=== PATIENT | male | born 1940 | race Caucasian/White ===

== ENCOUNTER → 2016-10-18 | Outpatient (CLI) | payer MEDICARE, OTHER ==
--- NOTE | 2016-10-18 16:31 | MR ---
EXAM DATE: 10/18/16 PATIENT'S AGE: 76 PATIENT: TERESA SILVEIRA Facility: Home, [place] Site . Site : [id number] Study: MRI Knee Right [id number] 1:08:25 PM Ordering Physician: Gume Witt Final Report: HISTORY: Right knee pain. Technique: MRI right knee without contrast. Comparison: Radiographs 03/17/2014. Findings: Medial compartment: Medial meniscus: Complex tear of the posterior horn of the meniscus extending into the posterior meniscal root. Intrameniscal degenerative signal changes in the body of meniscus. Articular cartilage: Grade 2-3 cartilage loss throughout the weightbearing portion of the medial femoral condyle. Moderate size area of grade 3 cartilage loss in the medial tibial plateau. Lateral compartment: Lateral meniscus: Complex tearing of the anterior horn of the meniscus. Anterior horn and body of the meniscus are attenuated. Fraying of the inferior surface of the posterior horn of meniscus. Articular cartilage: Large area of grade 3 cartilage loss in the lateral femoral condyle. No focal lateral tibial plateau cartilage defects. Patellofemoral compartment: Grade 3 cartilage loss in the medial patellar facet and over the median ridge of the patella. Grade 3-4 trochlear cartilage loss with subchondral cysts and mild subchondral marrow edema. Ligaments: ACL: Intact. PCL: Intact. MCL: Intact. Lateral ligamentous complex: Intact. Extensor mechanism: Distal quadriceps and patellar tendons are intact. Medial and lateral patellar restraints are intact. Joint space: Small joint effusion. 1 x 1.1 x 0.6 cm joint body posterior to the medial meniscus posterior root. Bones and soft tissues: Tricompartmental osteophytes. No fracture. No marrow replacing process. Small popliteal cyst. Small amount of fluid in the superficial infrapatellar bursa with adjacent subcutaneous edema. Impression: 1. Complex medial meniscus tear. 2. Complex lateral meniscus tear. 3. 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 4. Small joint effusion. 1.1 cm joint body posterior to the medial meniscus. 5. Small popliteal cyst. 6. Superficial infrapatellar bursitis. Dictated by Govind Gomes MD @ Oct 18 2016 3:45PM (Electronic Signature) Report Signed by Proxy and Original Signed Document filed in the Medical Record. MTDD
== END ==
LOC: MW.MRI 12:00
DX: M25.561 Pain in right knee (principal); S83.281A Other tear of lateral meniscus, current injury, right knee, initial encounter; S83.241A Other tear of medial meniscus, current injury, right knee, initial encounter; M17.11 Unilateral primary osteoarthritis, right knee; M25.461 Effusion, right knee; M70.41 Prepatellar bursitis, right knee; M71.21 Synovial cyst of popliteal space [Baker], right knee
CPT/HCPCS: 73721-26-RT; 73721-RT

== ENCOUNTER → 2016-10-31 | Outpatient (CLI) | payer MEDICARE, OTHER ==
--- NOTE | 2016-10-31 16:55 | CR ---
EXAMINATION: Right knee HISTORY: Pain COMPARISON: MRI dated 10/18/2016 TECHNIQUE: 2 views FINDINGS/IMPRESSION: There is no acute osseous abnormality, dislocation, or fracture identified. Min imal joint space narrowing is noted. Bone mineralization is otherwise normal.
== END ==
LOC: MW.CHORTHO 07:58
PROVIDERS: ATTEND Orthopaedic Surgery
DX: M25.561 Pain in right knee (principal); S83.281A Other tear of lateral meniscus, current injury, right knee, initial encounter
CPT/HCPCS: 73560-26-RT; 73560-RT; 73564-LT

== ENCOUNTER → 2016-11-02 | Outpatient (CLI) | payer MEDICARE, OTHER ==
--- NOTE | 2016-11-02 12:32 | CR ---
EXAMINATION: Left knee HISTORY: Pain COMPARISON: 10/31/2016 TECHNIQUE: 2 views FINDINGS/IMPRESSION: There is no acute osseous abnormality, dislocation, or fracture. Bone mineraliz ation and joint spaces appear normal. No soft tissue swelling or joint effusion.
== END ==
LOC: MW.CHORTHO 07:46
PROVIDERS: ATTEND Orthopaedic Surgery
DX: M25.562 Pain in left knee (principal)
CPT/HCPCS: 73560-26-LT; 73560-LT

== ENCOUNTER 2018-11-21 09:12 | Day surgery (SDC) | payer MEDICARE, OTHER ==
--- NOTE | 2018-11-21 11:03 | PCM.PREANE ---
Preanesthetic Assessment - Anesthesia/Transfusion/Family Hx Anesthesia History: Prior Anesthesia Without Reaction Family History of Anesthesia Reaction: No Transfusion History: No Prior Transfusion(s) - Review of Systems General: No Symptoms Pulmonary: No Symptoms Cardiovascular: No Symptoms Gastrointestinal: No Symptoms Neurological: No Symptoms Other: Reports: None - Physical Assessment NPO Status Date: 11/20/18 O2 Sat by Pulse Oximetry: 93 Respiratory Rate: 16 Vital Signs: Last Vital Signs Temp 97.2 F 11/21/18 09:58 Pulse 67 11/21/18 09:58 Resp 16 11/21/18 09:58 BP 140/69 11/21/18 09:58 Pulse Ox 93 L 11/21/18 09:58 Height: 5 ft 7 in Weight: 77.564 kg ASA Class: 2 Mental Status: Alert & Oriented x3 Airway Class: Mallampati = 2 Dentition: Reports: Dentures ROM/Head Extension: Full Lungs: Clear to Auscultation, Normal Respiratory Effort Cardiovascular: Regular Rate, Regular Rhythm - Allergies Allergies/Adverse Reactions: Allergies Allergy/AdvReac Type Severity Reaction Status Date / Time No Known Allergies Allergy Verified 11/18/18 07:15 - Blood Blood Available: No - Anesthesia Plan Pre-Op Medication Ordered: None - Acknowledgements Anesthesia Type Planned: General Anesthesia, MAC Pt an Appropriate Candidate for the Planned Anesthesia: Yes Alternatives and Risks of Anesthesia Discussed w Pt/Guardian: Yes Pt/Guardian Understands and Agrees with Anesthesia Plan: Yes Additional Comments: PMH: bph, htn, thyroid replacement, smoker CKD3 {YANG: mac/tiva PreAnesthesia Questionnaire HEENT History: Reports: Hard of Hearing, Other (See Below) Other HEENT History: 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 No treament was needed. This occured at the same time of his possible [place] Psychiatric History: Reports: None Endocrine/Metabolic History: Reports: Hypothyroidism Hematologic History: Reports: None Immunologic History: Reports: None Oncologic (Cancer) History: Reports: None Dermatologic History: Reports: None - Past Surgical History Head Surgeries/Procedures: Reports: None Cardiovascular Surgical History: Reports: None Respiratory Surgical History: Reports: None GI Surgical History: Reports: Appendectomy, Colonoscopy, Hernia, Inguinal Male Surgical History: Reports: None Endocrine Surgical History: Reports: None Neurological Surgical History: Reports: None Musculoskeletal Surgical History: Reports: None Oncologic Surgical History: Reports: None Dermatological Surgical History: Reports: None - SUBSTANCE USE Smoking Status *Q: Former Smoker Recreational Drug Use History: No - HOME MEDS Home Medications: Home Meds Finasteride 5 mg PO DAILY 05/19/16 [History] Levothyroxine Sodium [Synthroid] 25 mcg PO DAILY 05/19/16 [History] Terazosin HCl [Terazosin] 2 mg PO BEDTIME 05/19/16 [History] Triamterene/Hydrochlorothiazid [Triamterene-HCTZ 37.5-25 MG] 1 tab PO DAILY 02/25 [History] Aspirin [Lo-Dose Aspirin EC] 81 mg PO DAILY 11/18/18 [History] Triamcinolone Acetonide [Triamcinolone Acetonide 0.1% Crm] 1 applic TOP ASDIRECTED PRN 11/18/18 [History] atorvaSTATin Calcium [Atorvastatin Calcium] 40 mg PO DAILY 11/18/18 [History]
[2018-11-21] MEDS ORDERED: Propofol 200 MG/20 ML SDV ONE (12:07)
[2018-11-21] MEDS ORDERED: Ondansetron 4 MG/2 ML SDV ONE (12:08)
[2018-11-21] MEDS ORDERED: fentaNYL 100 MCG/2 ML SDV ONE (12:08)
[2018-11-21] MEDS ORDERED: Midazolam 1 MG/ML 2 ML SDV ONE (12:08)
--- NOTE | 2018-11-21 13:30 | PCM.OPNOTE ---
- General Post-Op/Procedure Note Date of Surgery/Procedure: 11/21/18 Operative Procedure(s): diagnostic colonoscopy Findings: cecal mass x 2, ascending mass x 1, multiple ascending colon polyps, hyperplastic polyps, diverticulosis Pre Op Diagnosis: hx of colon polyps Post-Op Diagnosis: cecal mass x 2, ascending mass x 1, multiple ascending colon polyps, hyperplastic polyps, diverticulosis Anesthesia Technique: [facility] [place] Primary Surgeon: Margret Lopez Pathology: cecal mass x 2, ascending mass x 1, ascending polyp, sigmoid polyp Condition: Good
--- NOTE | 2018-11-21 13:45 | PCM.POSTAN ---
POST ANESTHESIA ASSESSMENT - MENTAL STATUS Mental Status: Alert, Oriented - RESPIRATORY Respiratory Status: Respiratory Rate WNL, Airway Patent, O2 Saturation Stable - CARDIOVASCULAR CV Status: Pulse Rate WNL, Blood Pressure Stable - GASTROINTESTINAL GI Status: No Symptoms - POST OP HYDRATION Hydration Status: Adequate & Stable
[2018-11-21 13:58] VITALS: BP 105/48
--- NOTE | 2018-11-21 16:45 | OR ---
SURGEON: GARCIA BROWN MD DATE OF PROCEDURE: 11/21/2018 PREOPERATIVE DIAGNOSIS: History of colon polyp. POSTOPERATIVE DIAGNOSES: 1. Diverticulosis. 2. Hyperplastic polyps of the rectum. 3. Cecal mass x2. 4. Ascending colon mass x1. 5. Ascending colon polyps. PROCEDURE PERFORMED: Diagnostic colonoscopy with biopsy. ANESTHESIA: MAC. INSTRUMENT USED: Olympus colonoscope. EXTENT OF EXAM: To the cecum. PREPARATION: Good. LIMITATIONS: None. INDICATIONS FOR EXAMINATION: The patient is a 78-year-old male who came to see me for repair of a right inguinal hernia. Upon reviewing his chart, I noticed that he had a previous large cecal polyp that required serial colonoscopies to remove it. He is due for a three year follow up colonoscopy. The decision was made to proceed with a colonoscopy first before attempting hernia repair. I explained the procedure, expected perioperative course, and risks including bleeding, infection, or damage to surrounding structures including perforation. The patient verbalized understanding and wishes to proceed. PROCEDURE IN DETAIL: The patient was brought into the endoscopy suite and placed in a left lateral decubitus position. A time-out was completed verifying the patient's name, age, date of , allergies, and procedure to be performed. Monitored anesthesia care was induced and continuous oxygen was provided via nasal cannula throughout the procedure. After adequate sedation was achieved, digital rectal exam was performed. This exam was within normal limits. A well lubricated colonoscope was inserted into the rectum and advanced under direct visualization to the level of the cecum. The cecum was identified by both visual and anatomic landmarks. A photograph was taken of the cecal cap; however, due to looping of the scope more proximally, I was unable to retroflex the scope within the cecum. However, I was able to get a good look at the terminal ileum. The scope was fully withdrawn while examining the color, texture, anatomy, and integrity of the mucosa from the cecum to the anal canal. The patient was found to have 2 cecal masses; one was close to the appendiceal opening, the other was just slightly above this. Biopsies were taken of each of these and labeled as cecal mass #1, which was the mass close to the appendiceal orifice, and cecal mass #2. The patient was then found to have another large polyp within the midportion of the ascending colon at 110 cm. A biopsy of this was taken and sent as ascending colon mass. There were 3-4 more smaller polyps within the ascending colon, but given that I would be referring him to a colorectal surgeon for further evaluation, I did not remove these. The patient was also found to have a small polyp in the sigmoid colon. This was removed in piecemeal fashion and sent to Pathology, labeled as sigmoid colon polyp. He had diverticulosis throughout the sigmoid colon. In the distal sigmoid and rectum, he had multiple small polyps that appeared to be hyperplastic. A photograph of this was taken. The scope was then brought into the rectum and retroflexed to allow visualization of the anal canal opening. This appeared normal and a photograph was taken. The scope was then straightened out and fully withdrawn. The cecum to anus time was 21 minutes. The patient tolerated the procedure well and was taken to PACU in stable condition. ENDOSCOPIC DIAGNOSES: 1. Diverticulosis. 2. Hyperplastic polyps of the rectum. 3. Cecal mass x2. 4. Ascending colon mass x1. 5. Ascending colon polyps. RECOMMENDATIONS: I visited with the patient in the postoperative care area and showed him pictures of my findings today. I will refer him to a colorectal surgeon for further management. WILNER CAZARES /[id number] SAEID
== END 2018-11-21 14:25 | disposition home or self-care (01) ==
LOC: MW.SDS 09:12
PROVIDERS: ATTEND Surgery
DX: Z12.11 Encounter for screening for malignant neoplasm of colon (principal); D12.0 Benign neoplasm of cecum; D12.2 Benign neoplasm of ascending colon; D12.5 Benign neoplasm of sigmoid colon; K57.30 Diverticulosis of large intestine without perforation or abscess without bleeding; K63.5 Polyp of colon; K62.1 Rectal polyp; K40.90 Unilateral inguinal hernia, without obstruction or gangrene, not specified as recurrent; I10 Essential (primary) hypertension; I25.2 Old myocardial infarction; E78.00 Pure hypercholesterolemia, unspecified; E03.9 Hypothyroidism, unspecified; M17.10 Unilateral primary osteoarthritis, unspecified knee; N40.0 Benign prostatic hyperplasia without lower urinary tract symptoms; R73.03 Prediabetes; Z86.010 Personal history of colon polyps; Z79.82 Long term (current) use of aspirin; Z79.899 Other long term (current) drug therapy
CPT/HCPCS: 45380; J2250; J2405; J2704; J3010; 88305

== ENCOUNTER 2019-02-18 08:46 | Day surgery (SDC) | payer MEDICARE, OTHER ==
[~2019-02-18 08:46] MED LIST: Lactated Ringers 1,000 ML IV SCH; Lidocaine 2% 5 ML SDV ONE; Midazolam 1 MG/ML 2 ML SDV ONE; Ondansetron 4 MG/2 ML SDV ONE; Propofol 200 MG/20 ML SDV ONE; Sodium Chloride 0.9% 10 ML SDV IV PRN; Sodium Chloride 0.9% 10 ML Syringe FLUSH PRN; Sodium Chloride 0.9% 2.5 ML Syringe FLUSH PRN; ceFAZolin 2 GM in Premix Bag 1 BAG IV ONE; fentaNYL 250 MCG/5 ML SDV ONE
--- NOTE | 2019-02-18 09:50 | PCM.PREANE ---
Preanesthetic Assessment - Anesthesia/Transfusion/Family Hx Anesthesia History: Prior Anesthesia Without Reaction Family History of Anesthesia Reaction: No Transfusion History: No Prior Transfusion(s) Intubation History: Unknown - Review of Systems General: No Symptoms Pulmonary: No Symptoms Cardiovascular: No Symptoms Gastrointestinal: No Symptoms Neurological: No Symptoms Other: Reports: None - Physical Assessment Height: 5 ft 7 in Weight: 77.111 kg ASA Class: 3 Mental Status: Alert & Oriented x3 Airway Class: Mallampati = 2 Dentition: Reports: Dentures (upper and lower) Thyro-Mental Finger Breadths: 3 Mouth Opening Finger Breadths: 3 ROM/Head Extension: Limited/Partial Lungs: Clear to Auscultation, Normal Respiratory Effort Cardiovascular: Regular Rate, Regular Rhythm - Allergies Allergies/Adverse Reactions: Allergies Allergy/AdvReac Type Severity Reaction Status Date / Time No Known Allergies Allergy Verified 02/11/19 10:27 - Blood Blood Available: No - Anesthesia Plan Pre-Op Medication Ordered: None - Acknowledgements Anesthesia Type Planned: General Anesthesia Pt an Appropriate Candidate for the Planned Anesthesia: Yes Alternatives and Risks of Anesthesia Discussed w Pt/Guardian: Yes Pt/Guardian Understands and Agrees with Anesthesia Plan: Yes PreAnesthesia Questionnaire HEENT History: Reports: Hard of Hearing, Other (See Below) Other HEENT History: 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 No treament was needed. This occured at the same time of his possible [place] event per the patient and his . Psychiatric History: Reports: None Endocrine/Metabolic History: Reports: Hypothyroidism, Other (See Below) ( prediabetes) Hematologic History: Reports: None Immunologic History: Reports: None Oncologic (Cancer) History: Reports: None Dermatologic History: Reports: None - Past Surgical History Head Surgeries/Procedures: Reports: None HEENT Surgical History: Reports: None Cardiovascular Surgical History: Reports: None Respiratory Surgical History: Reports: None GI Surgical History: Reports: Appendectomy, Colonoscopy, Hernia, Inguinal (right ) Male Surgical History: Reports: None Endocrine Surgical History: Reports: None Neurological Surgical History: Reports: None Musculoskeletal Surgical History: Reports: None Oncologic Surgical History: Reports: None Dermatological Surgical History: Reports: None - SUBSTANCE USE Smoking Status *Q: Former Smoker (quit 2-3 years ago) Recreational Drug Use History: No - HOME MEDS Home Medications: Home Meds Finasteride 5 mg PO DAILY 05/19/16 [History] Levothyroxine Sodium [Synthroid] 25 mcg PO DAILY 05/19/16 [History] Terazosin HCl [Terazosin] 2 mg PO BEDTIME 05/19/16 [History] Triamterene/Hydrochlorothiazid [Triamterene-HCTZ 37.5-25 MG] 1 tab PO DAILY 02/25 [History] Aspirin [Lo-Dose Aspirin EC] 81 mg PO DAILY 11/18/18 [History] Triamcinolone Acetonide [Triamcinolone Acetonide 0.1% Crm] 1 applic TOP ASDIRECTED PRN 11/18/18 [History] atorvaSTATin Calcium [Atorvastatin Calcium] 40 mg PO DAILY 11/18/18 [History] - CURRENT (IN HOUSE) MEDS Current Meds: Current Medications Lactated Ringer's (Ringers, Lactated) 1,000 mls @ 125 mls/hr IV ASDIRECTED BLAYNE Sodium Chloride (Saline Flush) 10 ml FLUSH ASDIRECTED PRN PRN Reason: Keep Vein Open Sodium Chloride (Saline Flush) 2.5 ml FLUSH ASDIRECTED PRN PRN Reason: Keep Vein Open Sodium Chloride (Normal Saline) 10 ml IV ASDIRECTED PRN PRN Reason: IV Use Discontinued Medications Fentanyl (Sublimaze) Confirm Administered Dose 250 mcg .ROUTE .STK-MED ONE Stop: 02/18/19 08:34 Cefazolin Sodium/Dextrose 2 gm (/ Premix) 50 mls @ 100 mls/hr IV ONETIME ONE Stop: 02/17/19 08:29 Lidocaine (Xylocaine-Mpf 2%) Confirm Administered Dose 5 ml .ROUTE .STK-MED ONE Stop: 02/18/19 08:34 Midazolam HCl (Versed 1 Mg/Ml) Confirm Administered Dose 2 mg .ROUTE .STK-MED ONE Stop: 02/18/19 08:34 Ondansetron HCl (Zofran) Confirm Administered Dose 4 mg .ROUTE .STK-MED ONE Stop: 02/18/19 08:34 Propofol (Diprivan 20 Ml) Confirm Administered Dose 200 mg .ROUTE .STK-MED ONE Stop: 02/18/19 08:34
[2019-02-18] MEDS ORDERED: Bupivacaine 0.5% 30 ML SDV ONE (09:54)
[2019-02-18] MEDS ORDERED: Naloxone 0.4 MG/ML Syringe IVPUSH PRN (10:20)
[2019-02-18] MEDS ORDERED: 50% Dextrose in Water 50 ML Syringe IVPUSH PRN (10:20)
[2019-02-18] MEDS ORDERED: fentaNYL 100 MCG/2 ML SDV IVPUSH PRN (10:20)
[2019-02-18] MEDS ORDERED: Atropine 0.1 MG/ML 10 ML Syringe IVPUSH PRN ×2 (10:20)
[2019-02-18] MEDS ORDERED: EPINEPHrine 1:10,000 1 MG/10 ML Syringe IVPUSH PRN (10:20)
[2019-02-18] MEDS ORDERED: Albuterol 0.083% 2.5 MG/3 ML Neb Soln NEB PRN (10:20)
[2019-02-18] MEDS ORDERED: Sodium Chloride 0.9% 20 ML ONE (11:43)
[2019-02-18] MEDS ORDERED: ceFAZolin 1 GM Vial ONE (11:43)
[2019-02-18] MEDS ORDERED: ePHEDrine 50 MG/ML SDV ONE (11:45)
--- NOTE | 2019-02-18 13:08 | PCM.OPNOTE ---
- General Post-Op/Procedure Note Date of Surgery/Procedure: 02/18/19 Operative Procedure(s): LEFT INGUINAL HERNIA REPAIR, EXCISION LEFT GROIN SKIN TAG Findings: left inguinal skin tag, left direct inguinal hernia Pre Op Diagnosis: left inguinal skin tag, left direct inguinal hernia Post-Op Diagnosis: left inguinal skin tag, left direct inguinal hernia Anesthesia Technique: MAC Primary Surgeon: Margret Lopez Fluid Replacement, Intraop: 1,100 EBL in mLs: 5 Condition: Good
[2019-02-18] MEDS ORDERED: Acetaminophen/oxyCODONE 325-5 MG Tab ONE (14:40)
[2019-02-18] MEDS ORDERED: Acetaminophen/oxyCODONE 325-5 MG Tab PO PRN (14:46)
[2019-02-18 15:20] VITALS: BP 116/57
--- NOTE | 2019-02-19 14:23 | OR ---
SURGEON: MARGRET LOPEZ MD DATE OF PROCEDURE: 02/18/2019 PREOPERATIVE DIAGNOSES: 1. Left inguinal hernia. 2. Left groin skin tag. POSTOPERATIVE DIAGNOSES: 1. Left direct inguinal hernia. 2. Left groin skin tag. PROCEDURE PERFORMED: Excision of left groin skin tag, left inguinal hernia repair with mesh. PRIMARY SURGEON: Margret Lopez MD. ANESTHESIA: General endotracheal anesthesia. FLUIDS: 1100 mL crystalloid. ESTIMATED BLOOD LOSS: 5 mL. FINDINGS: Left groin skin tag measuring 1 cm x 1 cm in size, left direct inguinal hernia containing fat. COMPLICATIONS: None. INDICATIONS: The patient is a 78-year-old male who has a left inguinal hernia. Just inferior to the inguinal ligament, he has a large skin tag that is along where his inguinal crease is. He would like to have the inguinal hernia repaired and have the skin tag excised as well. I explained the procedure, expected perioperative course, and risks including bleeding, infection, or damage to surrounding structures. He verbalized understanding and wishes to proceed. PROCEDURE IN DETAIL: The patient was brought into the OR and placed on the OR table in supine position. A time-out was completed verifying the patient's name, age, date of , allergies, and procedure to be performed. General endotracheal anesthesia was induced. The lower abdomen, groin, and genitalia were prepped and draped in usual standard fashion. I anesthetized the area overlying my skin incision with 0.5% Marcaine plain. A 10 blade was used to make an oblique incision 1 fingerbreadth above the inguinal ligament. This was carried down through the subcutaneous tissue using cautery. The external oblique fascia was exposed and incised sharply with a 15 blade. Using Metzenbaum scissors, I carried my incision along the length of the external oblique fibers to the external ring. I cleared away the underside of the external oblique fascia both superiorly and inferiorly. I then encircled the cord structures with a Radha drain. I immediately encountered a direct inguinal hernia. The floor of the inguinal canal was attenuated and contained fat. This was reduced back into the abdomen. A small Prolene patch was then placed into the floor of the inguinal canal and the tails of the mesh were wrapped around the internal ring. The patch was sutured medially to the pubic tubercle, inferiorly to Bang's ligament and the reflected inguinal ligament, and superiorly to the conjoined tendon using interrupted 0 Ethibond sutures. The tails of the mesh were sutured in place to allow the cord structures through without any undue tension or strangulation. I then had the patient do a Valsalva maneuver and the repair appeared intact. I irrigated the wound with normal saline. The external oblique fascia was then closed with a running 3-0 Vicryl suture. The subcutaneous fat was closed with a running 3-0 Vicryl suture along the deep margin and with interrupted 3-0 Vicryl more superficially. The skin was closed with a running 4-0 Monocryl stitch. Steri-Strips and sterile dressings were applied. I then turned my attention to the skin tag. I injected 0.5% marcaine plain under the lesion. I used a 15 blade to transect the lesion at its base. Cautery was used to achieve hemostasis. Skin the base of the lesion was so small (2-3mm) I did not suture this closed. A sterile dressing was applied. All counts were complete and correct at the end of the case. The patient was extubated and taken to the PACU in stable condition. WILNER CAZARES /[id number] SAEID
== END 2019-02-18 14:45 | disposition home or self-care (01) ==
LOC: MW.SDS 08:46
PROVIDERS: ATTEND Surgery
DX: K40.90 Unilateral inguinal hernia, without obstruction or gangrene, not specified as recurrent (principal); L91.8 Other hypertrophic disorders of the skin; I10 Essential (primary) hypertension; E78.00 Pure hypercholesterolemia, unspecified; E03.9 Hypothyroidism, unspecified; M17.12 Unilateral primary osteoarthritis, left knee; R73.03 Prediabetes; N40.0 Benign prostatic hyperplasia without lower urinary tract symptoms; M19.90 Unspecified osteoarthritis, unspecified site; Z79.899 Other long term (current) drug therapy; Z79.82 Long term (current) use of aspirin; Z87.891 Personal history of nicotine dependence
CPT/HCPCS: 49505; A9270; J0690; J2001; J2250; J2405; J2704; J3010; J3490; J7120

== ENCOUNTER 2020-08-04 15:23 | Emergency (ER) | payer MEDICARE, OTHER ==
[2020-08-04] MEDS ORDERED: Sodium Chloride 0.9% 2.5 ML Syringe FLUSH PRN (15:58)
[2020-08-04] MEDS ORDERED: Sodium Chloride 0.9% 10 ML Syringe FLUSH PRN (15:58)
--- NOTE | 2020-08-04 16:02 | PCM.SN.2 ---
- Free Text/Narrative Note: EKG Time 355pm Rate 65 NSR No BINH
[2020-08-04] MEDS ORDERED: Sodium Chloride 0.9% 1,000 ML IV ONE (16:40)
[2020-08-04 17:09] LABS: BLOOD UREA NITROGEN,BUN 25 mg/dL (7.0-18.0); CARBON DIOXIDE,CO2 25.1 mmol/L (21.0-32.0); CHLORIDE,CL 104 mmol/L (98-107); GLUCOSE RANDOM 118 mg/dL (74-106); POTASSIUM,K 3.7 mmol/L (3.5-5.1); SODIUM,NA 141 mmol/L (136-148)
--- NOTE | 2020-08-04 17:27 | EDM.PDOC ---
ED HPI GENERAL MEDICAL PROBLEM - General Chief Complaint: General Stated Complaint: [facility] RE[facility] Time Seen by Provider: 08/04/20 15:24 Source of Information: Reports: Patient History Limitations: Reports: No Limitations - History of Present Illness INITIAL COMMENTS - FREE TEXT/NARRATIVE: HISTORY AND PHYSICAL: History of present illness: Patient is a 80-year-old male presents emergency room today with a few various complaints. Patient states his main complaint is he has a headache. Patient states he has had a headache for the past 3 weeks off and on but he has had worse headaches before. Patient states that he had a routine follow-up appointment yesterday at the [facility] and told him about his headaches. Patient states that he is also been having issues with shortness of breath, and muscle cramping x 6 months-1year. Patient states he has been having issues with shortness of breath and muscle cramping for the past 6 months to 1 year and has also seen Dr. Rodarte for this and has had multiple studies done according to patient over the course of the past 1 year. Patient is unsure what he specifically had done/tested but states that the [facility] checked a D-dimer yesterday and instructed patient to come to the emergency room as this was elevated yesterday. Patient does not have paperwork from the [facility] with him today. Patient states his only complaint today is he is having a headache. Patient denies any head injury or trauma. States he has a history of hypertension, hyperlipidemia, TIA. Patient states that his shortness of breath is not new or changed today and this has been ongoing for nearly a year and he has been following with his primary care provider. Daughter states she is concerned about his shortness of breath but patient states he is not concerned. Patient denies fever, chills, chest pain, or cough. Denies neck stiff ness, change in vision, syncope, or near syncope. Denies nausea, vomiting, abdominal pain, diarrhea, constipation, or dysuria. Has not noted any blood in urine or stool. Patient has been eating and drinking appropriately. Review of systems: As per history of present illness and below otherwise all systems reviewed and negative. Past medical history: As per history of present illness and as reviewed below otherwise noncontributory. Surgical history: As per history of present illness and as reviewed below otherwise noncontrib utory. Social history: See social history for further information Family history: As per history of present illness and as reviewed below otherwise noncontributory. Physical exam: General: Patient is alert, oriented, and in no acute distress. Patient sitting comfortably on exam table. Vitals stable and reviewed by me. HEENT: Atraumatic, normocephalic, pupils equal and reactive bilaterally, ne gative for conjunctival pallor or scleral icterus, mucous membranes moist, TMs normal bilaterally, throat clear, neck supple, nontender, trachea midline. No drooling or trismus noted. No meningeal signs. No hot potato voice noted. Lungs: Clear to auscultation, breath sounds equal bilaterally, chest nontender. Patient speaking clearly without breathlessness, no wheezing or stridor, no accessory muscle use or respiratory distress. Heart: S1S2, regular rate and rhythm without overt murmur Abdomen: Soft, nondistended, nontender. Negative for masses or hepatosplenomegaly. Negative for costovertebral tenderness. Pelvis: Stable nontender. Genitourinary: Deferred. Rectal: Deferred. Skin: Intact, warm, dry. No lesions or rashes noted. Extremities: Atraumatic, negative for cords or calf pain. Neurovascular unremarkable. Neuro: Awake, alert, oriented. Cranial nerves II through XII unremarkable. Cerebellum unremarkable. Motor and sensory unremarkable throughout. Exam nonfocal. Notes: Vitals stable. Patient states his SOB today is per his baseline, however, because his daughter is concerned, states he is willing to receive an evaluation for this today. Patient is comfortable on exam, nontoxic, and in no acute distress. He is breathing comfortably without any signs of respiratory distress, wheezing, or stridor. Patient's D-dimer is not elevated today in the ED and is WNL. On reexamination, patient has remained vitally stable throughout stay in ED, he remains nontoxic. Patient declines receiving a head CT imaging for his headaches or any pain medication for headache treatment. Patient continues to express that his shortness of breath is per his baseline and unchanged today despite his daughters concerns. He requests discharge from the ED. Strict return precautions were thoroughly discussed with patient. Discussed importance for follow-up with his primary care provider. Voices understanding and is agreeable to plan of care. Denies any further questions or concerns at this time. Diagnostics: EKG, CBC, CMP, Ddimer, CXR, Trop, (Patient declines head ct) Therapeutics: None (Patient declines pain medication) Prescription: None Impression: Headache, unspecified Dyspnea, chronic Plan: 1. You can use Tylenol as directed for pain and discomfort. 2. Follow-up with a primary care provider as discussed. Return to the ED as needed as discussed. Definitive disposition and diagnosis as appropriate pending reevaluation and review of above. - Related Data Allergies Allergy/AdvReac Type Severity Reaction Status Date / Time No Known Allergies Allergy Verified 08/04/20 15:40 Home Meds: Home Meds Finasteride 5 mg PO BEDTIME 05/19/16 [History] Levothyroxine Sodium [Synthroid] 75 mcg PO ACBREAKFAST 05/19/16 [History] Terazosin HCl [Terazosin] 2 mg PO BEDTIME 05/19/16 [History] Aspirin [Lo-Dose Aspirin EC] 81 mg PO DAILY 11/18/18 [History] atorvaSTATin Calcium [Atorvastatin Calcium] 40 mg PO BEDTIME 11/18/18 [History] lisinopriL [Lisinopril] 10 mg PO DAILY 08/04/20 [History] Past Medical History HEENT History: Reports: Hard of Hearing, Other (See Below) Other HEENT History: 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 No treament was needed. This occured at the same time of his possible GA event per the patient and his . Psychiatric History: Reports: None Endocrine/Metabolic History: Reports: Hypothyroidism, Other (See Below) Hematologic History: Reports: None Immunologic History: Reports: None Oncologic (Cancer) History: Reports: None Dermatologic History: Reports: None - Past Surgical History Head Surgeries/Procedures: Reports: None HEENT Surgical History: Reports: None Cardiovascular Surgical History: Reports: None Respiratory Surgical History: Reports: None GI Surgical History: Reports: Appendectomy, Colonoscopy, Hernia, Inguinal Male Surgical History: Reports: None Endocrine Surgical History: Reports: None Neurological Surgical History: Reports: None Musculoskeletal Surgical History: Reports: None Oncologic Surgical History: Reports: None Dermatological Surgical History: Reports: None Social & Family History - Family History Family Medical History: No Pertinent Family History - Caffeine Use Caffeine Use: Reports: Coffee - Recreational Drug Use Recreational Drug Use: No ED ROS GENERAL - Review of Systems Review Of Systems: Comprehensive ROS is negative, except as noted in HPI. ED EXAM, GENERAL - Physical Exam Exam: See Below (see dictation) Course - Vital Signs Last Recorded V/S: Last Vital Signs Temp 98.0 F 08/04/20 15:40 Pulse 60 08/04/20 17:15 Resp 18 08/04/20 17:15 BP 115/56 L 08/04/20 17:15 Pulse Ox 97 08/04/20 17:15 - Orders/Labs/Meds Orders: Active Orders 24 hr Category Date Time Status Cardiac Monitoring [RC] . DIRECTED Care 08/04/20 15:58 Active EKG Documentation Completion [RC] STAT Care 08/04/20 15:58 Active UA RFX NINA AND CULT IF INDIC [URIN] Stat Lab 08/04/20 15:58 Ordered Sodium Chloride 0.9% [Saline Flush] Med 08/04/20 15:58 Active 10 ml FLUSH ASDIRECTED PRN Sodium Chloride 0.9% [Saline Flush] Med 08/04/20 15:58 Active 2.5 ml FLUSH ASDIRECTED PRN Saline Lock Insert [OM.PC] Stat Oth 08/04/20 15:58 Ordered Medication Orders Sodium Chloride (Saline Flush) 2.5 ml FLUSH ASDIRECTED PRN PRN Reason: Keep Vein Open Last Admin: 08/04/20 17:05 Dose: 2.5 ml Documented by: DANIELLE Sodium Chloride (Saline Flush) 10 ml FLUSH ASDIRECTED PRN PRN Reason: Keep Vein Open Last Admin: 08/04/20 17:04 Dose: 10 ml Documented by: DANIELLE Labs: Laboratory Tests 08/04/20 08/04/20 08/04/20 Range/Units 16:31 16:31 16:31 WBC 7.80 (4.0-11.0) K/uL RBC 4.30 L (4.50-5.90) M/uL Hgb 13.0 (13.0-17.0) g/dL Hct 39.1 (38.0-50.0) % MCV 90.9 (80.0-98.0) fL MCH 30.2 (27.0-32.0) pg MCHC 33.2 (31.0-37.0) g/dL RDW Std Deviation 46.3 (28.0-62.0) fl RDW Coeff of Manuel 14 (11.0-15.0) % Plt Count 190 (150-400) K/uL MPV 10.30 (7.40-12.00) fL Neut % (Auto) 72.3 (48.0-80.0) % Lymph % (Auto) 16.0 (16.0-40.0) % Nash % (Auto) 7.4 (0.0-15.0) % Eos % (Auto) 3.8 (0.0-7.0) % Baso % (Auto) 0.5 (0.0-1.5) % Neut # (Auto) 5.6 (1.4-5.7) K/uL Lymph # (Auto) 1.3 (0.6-2.4) K/uL Nash # (Auto) 0.6 (0.0-0.8) K/uL Eos # (Auto) 0.3 (0.0-0.7) K/uL Baso # (Auto) 0.0 (0.0-0.1) K/uL Nucleated RBC % 0.0 /100WBC Nucleated RBCs # 0 K/uL D-Dimer, Quantitative 0.44 (0.0-0.50) mg/L FEU Sodium 141 (136-148) mmol/L Potassium 3.7 (3.5-5.1) mmol/L Chloride 104 (98-107) mmol/L Carbon Dioxide 25.1 (21.0-32.0) mmol/L BUN 25 H (7.0-18.0) mg/dL Creatinine 1.3 (0.8-1.3) mg/dL Est Cr Clr Drug Dosing 43.78 mL/min Estimated GFR (MDRD) 53.4 ml/min Glucose 118 H (74-106) mg/dL Calcium 9.0 (8.5-10.1) mg/dL Total Bilirubin 0.5 (0.2-1.0) mg/dL AST 18 (15-37) IU/L ALT 22 (14-63) IU/L Alkaline Phosphatase 74 (46-116) U/L Troponin I < 0.050 (0.000-0.056) ng/mL Total Protein 7.2 (6.4-8.2) g/dL Albumin 3.6 (3.4-5.0) g/dL Globulin 3.6 (2.6-4.0) g/dL Albumin/Globulin Ratio 1.0 (0.9-1.6) Meds: Medications Generic Name Dose Route Start Last Admin Trade Name Freq PRN Reason Stop Dose Admin Sodium Chloride 2.5 ml 08/04/20 15:58 08/04/20 17:05 Saline Flush FLUSH 2.5 ml ASDIRECTED PRN Administration Keep Vein Open Sodium Chloride 10 ml 08/04/20 15:58 08/04/20 17:04 Saline Flush FLUSH 10 ml ASDIRECTED PRN Administration Keep Vein Open Discontinued Medications Generic Name Dose Route Start Last Admin Trade Name Freq PRN Reason Stop Dose Admin Sodium Chloride 1,000 mls @ 1,000 mls/hr 08/04/20 16:40 08/04/20 16:55 Normal Saline IV 08/04/20 17:39 1,000 mls/hr .Bolus ONE Administration Departure - Departure Time of Disposition: 17:55 Disposition: Home, Self-Care 01 Clinical Impression: Headache Qualifiers: Headache type: unspecified Headache chronicity pattern: unspecified pattern Intractability: not intractable Qualified Code(s): R51.9 - Headache, unspecified Dyspnea Qualifiers: Dyspnea type: unspecified Qualified Code(s): R06.00 - Dyspnea, unspecified - Discharge Information Referrals: Tonny Rodarte DDS [Primary Care Provider] - Forms: ED Department Discharge Additional Instructions: The following information is given to patients seen in the emergency department who are being discharged to home. This information is to outline your options for follow-up care. We provide all patients seen in our emergency department with a follow-up referral. The need for follow-up, as well as the timing and circumstances, are variable depending upon the specifics of your emergency department visit. If you don't have a primary care physician on staff, we will provide you with a referral. We always advise you to contact your personal physician following an emergency department visit to inform them of the circumstance of the visit and for follow-up with them and/or the need for any referrals to a consulting specialist. The emergency department will also refer you to a specialist when appropriate. This referral assures that you have the opportunity for follow-up care with a specialist. All of these measure are taken in an effort to provide you with optimal care, which includes your follow-up. Under all circumstances we always encourage you to contact your private physician who remains a resource for coordinating your care. When calling for follow-up care, please make the office aware that this follow-up is from your recent emergency room visit. If for any reason you are refused follow-up, please contact the [facility] Emergency Department at and asked to speak to the emergency department charge nurse. [facility] [address] [place] [id number] [facility] [address] [place] [id number] 1. You can use Tylenol as directed for pain and discomfort. 2. Follow-up with a primary care provider as discussed. Return to the ED as needed as discussed. Sepsis Event Note (ED) - Evaluation Sepsis Screening Result: No Definite Risk - Focused Exam Vital Signs: Vital Signs Temp Pulse Resp BP Pulse Ox 08/04/20 17:15 60 18 115/56 L 97 08/04/20 15:40 98.0 F 67 18 134/63 95 - My Orders Last 24 Hours: My Active Orders 08/04/20 15:58 Cardiac Monitoring [RC] . DIRECTED EKG Documentation Completion [RC] STAT UA RFX NINA AND CULT IF INDIC [URIN] Stat Sodium Chloride 0.9% [Saline Flush] 10 ml FLUSH ASDIRECTED PRN Sodium Chloride 0.9% [Saline Flush] 2.5 ml FLUSH ASDIRECTED PRN Saline Lock Insert [OM.PC] Stat - Assessment/Plan Last 24 Hours: My Active Orders 08/04/20 15:58 Cardiac Monitoring [RC] . DIRECTED EKG Documentation Completion [RC] STAT UA RFX NINA AND CULT IF INDIC [URIN] Stat Sodium Chloride 0.9% [Saline Flush] 10 ml FLUSH ASDIRECTED PRN Sodium Chloride 0.9% [Saline Flush] 2.5 ml FLUSH ASDIRECTED PRN Saline Lock Insert [OM.PC] Stat
--- NOTE | 2020-08-04 17:54 | CR ---
HISTORY: Chest pain and shortness of breath. COMPARISON: 11/07/2018 FINDINGS: A portable erect AP view of the chest was obtained at 1734 hours. The lungs remain clear. No focal or diffuse infiltrates are present. The heart remains normal in size. The mediastinum is normal in appearance. The osseous structures are normal in appearance for the patient`s age. IMPRESSION: Normal portable chest single view. Dictated by Jose C Reyes MD @ Aug 04 2020 5:51PM Signed by Dr. Jose C Reyes @ Aug 04 2020 5:53PM
[2020-08-04 19:52] VITALS: BP 131/53; PULSE 64
== END 2020-08-04 18:20 | disposition home or self-care (01) ==
LOC: MW.ED 15:23
DX: R51.9 Headache, unspecified (principal); R06.02 Shortness of breath; I10 Essential (primary) hypertension; E78.00 Pure hypercholesterolemia, unspecified; I25.2 Old myocardial infarction; M19.90 Unspecified osteoarthritis, unspecified site; E03.9 Hypothyroidism, unspecified; Z79.82 Long term (current) use of aspirin; Z79.899 Other long term (current) drug therapy
CPT/HCPCS: 36415; 71045; 80053; 81003; 84484; 85025; 85379; 93005; 99285; J7030

== ENCOUNTER 2021-05-26 14:05 | Emergency (ER) | payer OTHER, MEDICARE ==
--- NOTE | 2021-05-26 14:18 | PCM.EKG ---
#1 Interpretation EKG Date: 05/26/21 Time: 14:04 Rhythm: NSR Rate (Beats/Min): 68 Eastern: Normal P-Wave: Present QRS: RBBB ST-T: Normal QT: Normal Comparison: No Change (08/04/20) EKG Interpretation Comments: Sinus Rhythm
[2021-05-26] MEDS ORDERED: Albuterol/Ipratropium 3.0-0.5 MG/3 ML Neb Soln NEB ONE (14:59)
--- NOTE | 2021-05-26 15:51 | CR ---
Indication: Shortness of breath Comparison: Two-view chest March 31, 2021 Technique: Single AP view chest Findings: There is hyperinflation and chronic interstitial change. There is minimal basilar atelectasis versus parenchymal scar. The cardiac silhouette is mildly prominent. The bony thorax is grossly intact. Impression: Hyperinflation and chronic interstitial change with basilar atelectasis versus scar. No dense consolidation is appreciated. Dictated by Bryson Chaudhry MD @ 05/26/2021 3:49:17 PM (Electronically Signed)
[2021-05-26 15:59] LABS: BLOOD UREA NITROGEN,BUN 28 mg/dL (7.0-18.0); CARBON DIOXIDE,CO2 27.2 mmol/L (21.0-32.0); CHLORIDE,CL 102 mmol/L (98-107); GLUCOSE RANDOM 128 mg/dL (74-106); POTASSIUM,K 3.9 mmol/L (3.5-5.1); SODIUM,NA 140 mmol/L (136-148)
--- NOTE | 2021-05-26 16:22 | CT ---
Clinical INDICATION: Headache and dizziness. TECHNIQUE: Axial noncontrast CT cuts were performed from the skull base to the vertex. COMPARISON: 08/18/2020. FINDINGS: There is mild cerebral volume loss. 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 There is no intracranial mass, hemorrhage, infarction or contusion. There is no midline shift or transtentorial herniation. There is bilateral paranasal sinus mucosal thickening; moderate on the left and mild on the right. The orbital contents appear normal. IMPRESSION: 1. Age related changes on the brain with no acute intracranial abnormality. 2. Paranasal sinus mucosal thickening. Please note that all CT scans at this facility use dose modulation, iterative reconstruction, and/or weight-based dosing when appropriate to reduce radiation dose to as low as reasonably achievable. Dictated by Luis Antonio Louise MD @ 05/26/2021 4:20:24 PM (Electronically Signed)
--- NOTE | 2021-05-26 16:34 | EDM.PDOC ---
ED HPI GENERAL MEDICAL PROBLEM - General Chief Complaint: Syncope Stated Complaint: HEADACHE,DIZZINESS Time Seen by Provider: 05/26/21 14:18 - History of Present Illness INITIAL COMMENTS - FREE TEXT/NARRATIVE: CHIEF COMPLAINT(S): Headache and dizziness HISTORY OF PRESENT ILLNESS: This is a 80-year-old man with a past medical history of prior tobacco use, hypertension who presents to the emergency department with a chief complaint of headache and dizziness. The patient states that for the last couple of weeks he has been experiencing headache and dizziness. He states that he mainly becomes dizzy when he goes from a sitting to standing position. He denies any chest pain or shortness breath and states that it feels like he is unsteady when he goes from a sitting to a standing position. He was sent here from the CT for this. He states that he has been experiencing some dyspnea and wheezing for which he is undergoing a work-up outpatient was getting a CT on Sunday and pulmonary function test. He states in addition to this he has had a persistent headache located in the bifrontal region of his head not associated with any blurry vision, double vision, loss of vision, trouble walking, speaking or swallowing. He denies any fevers. He states that he just recently switched from a blood pressure medication to amlodipine and he does have some swelling in his ankles. He denies any orthopnea. He states that he does not have a history of COPD and does not have an inhaler. In addition his is at bedside and she is concerned that he is having some memory loss. REVIEW OF SYSTEMS: Constitutional: Positive for dizziness denies fever, chills. Eyes: Denies eye pain Ears, Nose, Mouth, & Throat: Denies earache Cardiovascular: Denies chest pain Respiratory: Positive for shortness of breath and wheezing Gastrointestinal: Denies Nausea, vomiting, diarrhea, hematochezia. Genitourinary: Denies hematuria Skin:Denies a rash MSK: Denies joint pain Neurological: Positive for headache. Denies blurred vision, double vision,trouble walking, speaking or swallowing Psychiatric: Denies depression PAST MEDICAL HISTORY: As per history of present illness and as reviewed below otherwise noncontributory. SURGICAL HISTORY: As per history of present illness and as reviewed below otherwise noncontributory. SOCIAL HISTORY: As per history of present illness and as reviewed below otherwise noncontributory. FAMILY HISTORY: As per history of present illness and as reviewed below otherwise noncontributory. EXAMINATION OF ORGAN SYSTEMS/BODY AREAS: Constitutional: Blood pressure is 150/73, heart rate 69, respiratory rate 18 with an oxygen saturation of 94% on room air. Temperature 36.7 General: Well-appearing gentleman who is in no acute distress psychiatric: Appropriate mood and affect. Eyes: No scleral icterus or conjunctival erythema pupils were equal round and reactive to light. Extraocular movements are intact. No nystagmus. ENMT: Moist mucous membranes. No pharyngeal erythema Cardiovascular: Regular, rate, and rhythm. No gallops, murmurs, or rubs. Bilateral upper extremity pulses symmetric and intact. No peripheral edema. No JVD. Respiratory: Patient is speaking into full sentences however the patient does have inspiratory and expiratory wheezing bilaterally. Gastrointestinal: Soft, non-tender, non-distended. Normoactive bowel sounds Genitourinary: No suprapubic tenderness Musculoskeletal: Normal range of motion. Skin: No lesions or abrasions. Neurological: AOx4. CN grossly intact. Stregth 5/5 in bilateral upper and lower extremity. Sensation is intact bilaterally in upper and lower extremity. Gait appears normal. Finger to nose, heel to calzada, rapid alternating movements intact. MEDICAL DECISION MAKING AND COURSE IN THE ED WITH INTERPRETATION/REVIEW OF DIAGNOSTIC STUDIES: This is a 80-year-old man with a past medical history of hypertension and prior history of tobacco use who presents to the emergency department with symptoms suggestive of orthostatic hypotension, likely dementia, and likely undiagnosed COPD. The patient already has set up for outpatient work-up for COPD however the patient is wheezing and is borderline hypoxic on room air. We will provide the patient with a DuoNeb treatment. We will obtain orthostatic vital signs. Given his age will also undergo a cardiac work-up. The symptoms have been going on for quite some time so only 1 troponin is needed. I did offer obtaining a CT head without contrast for which she was amenable to this plan. EKG was obtained which do not reveal any acute signs of ischemia. Orthostatic vital signs were positive indicating orthostatic hypotension. Laboratory: CBC is unremarkable. INR is normal. CMP is unremarkable. Covid is negative. TSH is normal. The radiological images were viewed by myself along with reading the report from the radiologist. CT head without contrast reveals mild cerebral volume loss with moderate patchy reduced attenuation within the hemispheric white matter bilaterally consistent with age-related small vessel ischemic demyelination. There is para nasal sinus mucosal thickening. Chest x-ray reveals hyperinflation and chronic interstitial changes with basilar atelectasis. On reevaluation the patient's wheezing had completely resolved. His chest x-ray is suggestive of COPD. I did discuss this result with the patient. In addition I spoke with the nurse practitioner who takes care of the patient at the CT clinic and I did start the patient on an inhaler. In addition I did discuss his orthostatic hypotension with his primary care clinic. I did discuss all of this with the patient. In addition I did discuss the CT head results and I do believe the patient does require a dementia screening at his next primary care appointment. Patient and patient's family were amenable to discharge at this time and had no further questions DISPOSITION: The patient was discharged home in stable condition. The patient will follow up with primary care clinic in 3 to 5 days CONDITION: Fair PROCEDURES: None FINAL IMPRESSION(S)/DIAGNOSES: 1. Acute sinusitis 2. Acute wheezing likely secondary to undiagnosed COPD 3. Acute orthostatic hypotension Sergei Moralez M.D. - Related Data Allergies Allergy/AdvReac Type Severity Reaction Status Date / Time No Known Allergies Allergy Verified 08/04/20 15:40 Home Meds: Home Meds Finasteride 5 mg PO BEDTIME 05/19/16 [History] Levothyroxine Sodium [Synthroid] 75 mcg PO ACBREAKFAST 05/19/16 [History] Terazosin HCl [Terazosin] 2 mg PO BEDTIME 05/19/16 [History] Aspirin [Lo-Dose Aspirin EC] 81 mg PO DAILY 11/18/18 [History] atorvaSTATin Calcium [Atorvastatin Calcium] 40 mg PO BEDTIME 11/18/18 [History] lisinopriL [Lisinopril] 10 mg PO DAILY 08/04/20 [History] Fluticasone Propion/Salmeterol [Wixela 250-50 Inhub] 1 each IH BID #1 blst.w.dev 05/26/21 [Rx] Past Medical History HEENT History: Reports: Hard of Hearing, Other (See Below) Other HEENT History: 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 No treament was needed. This occured at the same time of his possible SD event per the patient and his . Psychiatric History: Reports: None Endocrine/Metabolic History: Reports: Hypothyroidism, Other (See Below) Hematologic History: Reports: None Immunologic History: Reports: None Oncologic (Cancer) History: Reports: None Dermatologic History: Reports: None - Infectious Disease History Infectious Disease History: Reports: Chicken Pox, Influenza, Measles - Past Surgical History Head Surgeries/Procedures: Reports: None HEENT Surgical History: Reports: Tonsillectomy Cardiovascular Surgical History: Reports: None Respiratory Surgical History: Reports: None GI Surgical History: Reports: Appendectomy, Colonoscopy, Hernia, Inguinal Male Surgical History: Reports: None Endocrine Surgical History: Reports: None Neurological Surgical History: Reports: None Musculoskeletal Surgical History: Reports: None Oncologic Surgical History: Reports: None Dermatological Surgical History: Reports: None Social & Family History - Family History Family Medical History: No Pertinent Family History - Tobacco Use Tobacco Use Status *Q: Former Tobacco User Used Tobacco, but Quit: Yes Month/Year Tobacco Last Used: 2013 - Caffeine Use Caffeine Use: Reports: Coffee - Recreational Drug Use Recreational Drug Use: No ED ROS GENERAL - Review of Systems Review Of Systems: See Below ED EXAM, GENERAL - Physical Exam Exam: See Below Course - Vital Signs Last Recorded V/S: Last Vital Signs Temp 36.4 C 05/26/21 17:33 Pulse 74 05/26/21 17:33 Resp 16 05/26/21 17:33 BP 149/75 H 05/26/21 17:33 Pulse Ox 94 L 05/26/21 17:33 Orthostatic Blood Pressure [ 123/57 Standing] Orthostatic Blood Pressure [ 127/64 Sitting] Orthostatic Blood Pressure [ 146/67 Supine] - Orders/Labs/Meds Labs: Laboratory Tests 05/26/21 05/26/21 05/26/21 Range/Units 15:10 15:11 15:11 WBC 6.80 (4.0-11.0) K/uL RBC 4.41 L (4.50-5.90) M/uL Hgb 13.2 (13.0-17.0) g/dL Hct 39.1 (38.0-50.0) % MCV 88.7 (80.0-98.0) fL MCH 29.9 (27.0-32.0) pg MCHC 33.8 (31.0-37.0) g/dL RDW Std Deviation 45.9 (28.0-62.0) fl RDW Coeff of Manuel 14 (11.0-15.0) % Plt Count 213 (150-400) K/uL MPV 10.20 (7.40-12.00) fL Neut % (Auto) 65.7 (48.0-80.0) % Lymph % (Auto) 21.5 (16.0-40.0) % Summit % (Auto) 8.1 (0.0-15.0) % Eos % (Auto) 4.1 (0.0-7.0) % Baso % (Auto) 0.6 (0.0-1.5) % Neut # (Auto) 4.5 (1.4-5.7) K/uL Lymph # (Auto) 1.5 (0.6-2.4) K/uL Summit # (Auto) 0.6 (0.0-0.8) K/uL Eos # (Auto) 0.3 (0.0-0.7) K/uL Baso # (Auto) 0.0 (0.0-0.1) K/uL Nucleated RBC % 0.0 /100WBC Nucleated RBCs # 0 K/uL INR Sodium 140 (136-148) mmol/L Potassium 3.9 (3.5-5.1) mmol/L Chloride 102 (98-107) mmol/L Carbon Dioxide 27.2 (21.0-32.0) mmol/L BUN 28 H (7.0-18.0) mg/dL Creatinine 1.3 (0.8-1.3) mg/dL Est Cr Clr Drug Dosing 43.78 mL/min Estimated GFR (MDRD) 53.4 ml/min Glucose 128 H (74-106) mg/dL Calcium 8.3 L (8.5-10.1) mg/dL Total Bilirubin 0.4 (0.2-1.0) mg/dL AST 18 (15-37) IU/L ALT 19 (14-63) IU/L Alkaline Phosphatase 88 (46-116) U/L Troponin I < 0.050 (0.000-0.056) ng/mL B-Natriuretic Peptide (<100) PG/ML Total Protein 6.9 (6.4-8.2) g/dL Albumin 3.3 L (3.4-5.0) g/dL Globulin 3.6 (2.6-4.0) g/dL Albumin/Globulin Ratio 0.9 (0.9-1.6) TSH, Ultra Sensitive 3.57 (0.36-3.74) uIU/mL SARS-CoV-2 RNA (MARIIA) NEGATIVE (NEGATIVE) 05/26/21 05/26/21 Range/Units 15:11 15:11 WBC (4.0-11.0) K/uL RBC (4.50-5.90) M/uL Hgb (13.0-17.0) g/dL Hct (38.0-50.0) % MCV (80.0-98.0) fL MCH (27.0-32.0) pg MCHC (31.0-37.0) g/dL RDW Std Deviation (28.0-62.0) fl RDW Coeff of Manuel (11.0-15.0) % Plt Count (150-400) K/uL MPV (7.40-12.00) fL Neut % (Auto) (48.0-80.0) % Lymph % (Auto) (16.0-40.0) % Summit % (Auto) (0.0-15.0) % Eos % (Auto) (0.0-7.0) % Baso % (Auto) (0.0-1.5) % Neut # (Auto) (1.4-5.7) K/uL Lymph # (Auto) (0.6-2.4) K/uL Summit # (Auto) (0.0-0.8) K/uL Eos # (Auto) (0.0-0.7) K/uL Baso # (Auto) (0.0-0.1) K/uL Nucleated RBC % /100WBC Nucleated RBCs # K/uL INR 1.03 Sodium (136-148) mmol/L Potassium (3.5-5.1) mmol/L Chloride (98-107) mmol/L Carbon Dioxide (21.0-32.0) mmol/L BUN (7.0-18.0) mg/dL Creatinine (0.8-1.3) mg/dL Est Cr Clr Drug Dosing mL/min Estimated GFR (MDRD) ml/min Glucose (74-106) mg/dL Calcium (8.5-10.1) mg/dL Total Bilirubin (0.2-1.0) mg/dL AST (15-37) IU/L ALT (14-63) IU/L Alkaline Phosphatase (46-116) U/L Troponin I (0.000-0.056) ng/mL B-Natriuretic Peptide 18 (<100) PG/ML Total Protein (6.4-8.2) g/dL Albumin (3.4-5.0) g/dL Globulin (2.6-4.0) g/dL Albumin/Globulin Ratio (0.9-1.6) TSH, Ultra Sensitive (0.36-3.74) uIU/mL SARS-CoV-2 RNA (MARIIA) (NEGATIVE) Meds: Medications Discontinued Medications Generic Name Dose Route Start Last Admin Trade Name Freq PRN Reason Stop Dose Admin Albuterol/Ipratropium 3 ml 05/26/21 14:59 05/26/21 15:05 Albuterol/Ipratropium 3.0-0.5 Mg/3 Ml Neb Soln NEB 05/26/21 15:00 3 ml ONETIME ONE Administration Departure - Departure Time of Disposition: 16:34 Disposition: Home, Self-Care 01 Condition: Fair Clinical Impression: Bronchitis, Orthostatic hypotension, Orthostatic headache - Discharge Information Prescriptions: Fluticasone Propion/Salmeterol [Wixela 250-50 Inhub] 1 each IH BID #1 blst.w.dev Instructions: Orthostatic Hypotension, Metered Dose Inhaler (No Spacer Used), Chronic Bronchitis, Adult Referrals: Dave Rodarte MD [Primary Care Provider] - Forms: ED Department Discharge Additional Instructions: You were evaluated today on an emergent basis. At this time given your wheezing on examination I do believe you likely have underlying COPD. I recommend that you use the inhaler prescribed twice a day until you follow-up with your primary care physician for reevaluation. I would make your appointment for your lung examinations. In addition you did have orthostatic hypotension. This is when your blood pressure drops when you stand. I do believe this is the reason you feel dizzy and have a headache. Please maintain hydration with fluids and Pedialyte. It is important that you discuss this with your primary care physician to further manage your blood pressure. In addition your CT of your head did show age-related volume loss and I do recommend that your primary care physician undergo a dementia work-up. If you have any worsening symptoms I would like you to return to the emergency department. Otherwise please keep your follow-up appointments. [facility] - Primary Care [address] [place] [id number] [place] [address] The patient is informed of any results of their evaluation and diagnostic workup and all questions are answered. They are given discharge instructions and return precautions. The patient is stable for discharge. The patient states they understand and agree with the plan and that they will return if their symptoms get worse or if they have any new concerns. The following information is given to patients seen in the emergency department who are being discharged to home. This information is to outline your options for follow-up care. We provide all patients seen in our emergency department with a follow-up referral. The need for follow-up, as well as the timing and circumstances, are variable depending upon the specifics of your emergency department visit. If you don't have a primary care physician on staff, we will provide you with a referral. We always advise you to contact your personal physician following an emergency department visit to inform them of the circumstance of the visit and for follow-up with them and/or the need for any referrals to a consulting specialist. The emergency department will also refer you to a specialist when appropriate. This referral assures that you have the opportunity for follow-up care with a specialist. All of these measure are taken in an effort to provide you with optimal care, which includes your follow-up. Under all circumstances we always encourage you to contact your private physician who remains a resource for coordinating your care. When calling for follow-up care, please make the office aware that this follow-up is from your recent emergency room visit. If for any reason you are refused follow-up, please contact the [facility] Emergency Department at and asked to speak to the emergency department charge nurse.
[2021-05-26 17:36] VITALS: BP 149/75; PULSE 74
== END 2021-05-26 17:37 | disposition home or self-care (01) ==
LOC: MW.ED 14:05
DX: J01.90 Acute sinusitis, unspecified (principal); J40 Bronchitis, not specified as acute or chronic; I95.1 Orthostatic hypotension; E78.00 Pure hypercholesterolemia, unspecified; I10 Essential (primary) hypertension; I25.2 Old myocardial infarction; M19.90 Unspecified osteoarthritis, unspecified site; E03.9 Hypothyroidism, unspecified; Z87.891 Personal history of nicotine dependence; Z79.82 Long term (current) use of aspirin; Z79.899 Other long term (current) drug therapy; Z20.822 Contact with and (suspected) exposure to COVID-19
CPT/HCPCS: 36415; 70450; 70450-26; 71045; 71045-26; 80053; 83880; 84443; 84484; 85025; 85610; 93005; 99284-25; J7620-GY; U0002

== ENCOUNTER 2021-08-16 07:59 | Day surgery (SDC) | payer OTHER, MEDICARE ==
[~2021-08-16 07:59] MED LIST changes: -Lidocaine 2% 5 ML SDV ONE; -Midazolam 1 MG/ML 2 ML SDV ONE; -Ondansetron 4 MG/2 ML SDV ONE; -Sodium Chloride 0.9% 10 ML SDV IV PRN; +Sodium Chloride 0.9% 20 ML SDV IV PRN; -ceFAZolin 2 GM in Premix Bag 1 BAG IV ONE; +fentaNYL 100 MCG/2 ML SDV ONE; -fentaNYL 250 MCG/5 ML SDV ONE
--- NOTE | 2021-08-16 09:10 | PCM.PREANE ---
Preanesthetic Assessment - Procedure Proposed Procedure: Colonoscopy - Anesthesia/Transfusion/Family Hx Anesthesia History: Prior Anesthesia Without Reaction Family History of Anesthesia Reaction: No Transfusion History: No Prior Transfusion(s) Intubation History: Unknown - Review of Systems General: No Symptoms Pulmonary: No Symptoms (Quit smoking X7 years, COPD no O2) Cardiovascular: No Symptoms (HTN, HLD) Gastrointestinal: No Symptoms (H/O colon polyps) Neurological: No Symptoms (h/o stroke 25 years ago with NO residual) Other: Reports: Thyroid Problems (Hypothyroid) - Physical Assessment NPO Status Date: 08/16/21 NPO Status Time: 01:00 Vital Signs: Last Vital Signs Temp 97.3 F 08/16/21 08:05 Pulse 71 08/16/21 08:05 Resp 15 08/16/21 08:05 BP 142/65 H 08/16/21 08:05 Pulse Ox 92 L 08/16/21 08:05 Height: 5 ft 7 in Weight: 85.275 kg ASA Class: 3 Mental Status: Alert & Oriented x3 Airway Class: Mallampati = 2 Dentition: Reports: Dentures (Full upper and lower) Thyro-Mental Finger Breadths: 3 Mouth Opening Finger Breadths: 3 ROM/Head Extension: Full Lungs: Clear to Auscultation, Normal Respiratory Effort Cardiovascular: Regular Rate, Regular Rhythm - Allergies Allergies/Adverse Reactions: Allergies Allergy/AdvReac Type Severity Reaction Status Date / Time No Known Allergies Allergy Verified 08/10/21 14:08 - Acknowledgements Anesthesia Type Planned: General Anesthesia Pt an Appropriate Candidate for the Planned Anesthesia: Yes Alternatives and Risks of Anesthesia Discussed w Pt/Guardian: Yes Pt/Guardian Understands and Agrees with Anesthesia Plan: Yes PreAnesthesia Questionnaire HEENT History: Reports: Allergic Rhinitis, Hard of Hearing, Other (See Below) Other HEENT History: 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 No treament was needed. This occured at the same time of his possible HI event per the patient and his . Psychiatric History: Reports: None Endocrine/Metabolic History: Reports: Hypothyroidism, Other (See Below) Hematologic History: Reports: None Immunologic History: Reports: None Oncologic (Cancer) History: Reports: None Dermatologic History: Reports: None - Infectious Disease History Infectious Disease History: Reports: Chicken Pox, Influenza, Measles - Past Surgical History Head Surgeries/Procedures: Reports: None HEENT Surgical History: Reports: Tonsillectomy Cardiovascular Surgical History: Reports: None Respiratory Surgical History: Reports: None GI Surgical History: Reports: Appendectomy, Colonoscopy, Hernia, Inguinal Male Surgical History: Reports: None Endocrine Surgical History: Reports: None Neurological Surgical History: Reports: None Musculoskeletal Surgical History: Reports: None Oncologic Surgical History: Reports: None Dermatological Surgical History: Reports: None - SUBSTANCE USE Tobacco Use Status *Q: Former Tobacco User Tobacco Use Within Last Twelve Months: No Recreational Drug Use History: No - HOME MEDS Home Medications: Home Meds Finasteride 5 mg PO BEDTIME 05/19/16 [History] Levothyroxine Sodium [Synthroid] 75 mcg PO BEDTIME 05/19/16 [History] atorvaSTATin Calcium [Atorvastatin Calcium] 40 mg PO BEDTIME 11/18/18 [History] Cetirizine HCl 10 mg PO DAILY 08/10/21 [History] Fluticasone Propion/Salmeterol [Wixela 250-50 Inhub] 1 puff IH BID 08/10/21 [History] Fluticasone Propionate [Flonase Allergy Relief] 2 spray NASBOTH DAILY 08/10/21 [History] Losartan [Cozaar] 25 mg PO QAM 08/10/21 [History] - CURRENT (IN HOUSE) MEDS Current Meds: Current Medications Lactated Ringer's (Ringers, Lactated) 1,000 mls @ 125 mls/hr IV ASDIRECTED BLAYNE Last Admin: 08/16/21 08:34 Dose: 125 mls/hr Documented by: Sodium Chloride (Sodium Chloride 0.9% 10 Ml Syringe) 10 ml FLUSH ASDIRECTED PRN PRN Reason: Keep Vein Open Sodium Chloride (Sodium Chloride 0.9% 2.5 Ml Syringe) 2.5 ml FLUSH ASDIRECTED PRN PRN Reason: Keep Vein Open Sodium Chloride (Sodium Chloride 0.9% 10 Ml Syringe) 10 ml FLUSH ASDIRECTED PRN PRN Reason: Keep Vein Open Sodium Chloride (Sodium Chloride 0.9% 2.5 Ml Syringe) 2.5 ml FLUSH ASDIRECTED PRN PRN Reason: Keep Vein Open Sodium Chloride (Sodium Chloride 0.9% 20 Ml Sdv) 10 ml IV ASDIRECTED PRN PRN Reason: IV Use Discontinued Medications Fentanyl (Fentanyl 100 Mcg/2 Ml Sdv) Confirm Administered Dose 100 mcg .ROUTE .STK-MED ONE Stop: 08/16/21 07:37 Lidocaine HCl (Lidocaine 1% 5 Ml Sdv) Confirm Administered Dose 5 ml .ROUTE .STK-MED ONE Stop: 08/16/21 07:37 Propofol (Propofol 200 Mg/20 Ml Sdv) Confirm Administered Dose 400 mg .ROUTE .STK-MED ONE Stop: 08/16/21 07:37
[2021-08-16] MEDS ORDERED: Propofol 200 MG/20 ML SDV ONE (10:20)
--- NOTE | 2021-08-16 10:45 | PCM.POSTAN ---
POST ANESTHESIA ASSESSMENT - MENTAL STATUS Mental Status: Alert, Oriented - VITAL SIGNS Vital Signs: Last Vital Signs Temp 97.3 F 08/16/21 08:05 Pulse 71 08/16/21 08:05 Resp 15 08/16/21 08:05 BP 142/65 H 08/16/21 08:05 Pulse Ox 92 L 08/16/21 08:05 - RESPIRATORY Respiratory Status: Respiratory Rate WNL, Airway Patent, O2 Saturation Stable - CARDIOVASCULAR CV Status: Pulse Rate WNL, Blood Pressure Stable - GASTROINTESTINAL GI Status: No Symptoms - PAIN Pain Score: 0 - POST OP HYDRATION Hydration Status: Adequate & Stable
--- NOTE | 2021-08-16 10:54 | PCM48HPAN ---
Post Anesthesia Note - EVALUATION WITHIN 48HRS OF ANESTHETIC Vital Signs in Normal Range: Yes Patient Participated in Evaluation: Yes Respiratory Function Stable: Yes Airway Patent: Yes Cardiovascular Function Stable: Yes Hydration Status Stable: Yes Pain Control Satisfactory: Yes Nausea and Vomiting Control Satisfactory: Yes Mental Status Recovered: Yes Vital Signs: Last Vital Signs Temp 97.5 F 08/16/21 10:40 Pulse 66 08/16/21 10:51 Resp 16 08/16/21 10:51 BP 105/63 08/16/21 10:51 Pulse Ox 95 08/16/21 10:51 - COMMENTS/OBSERVATIONS Free Text/Narrative:: Pt doing well post-op. VSS. No apparent anesthetic complications. Dr. Ezekiel Caputo
[2021-08-16 11:19] VITALS: BP 127/79; PULSE 64
--- NOTE | 2021-08-16 11:48 | PCM.OPNOTE ---
- General Post-Op/Procedure Note Date of Surgery/Procedure: 08/16/21 Operative Procedure(s): Screening colonoscopy Findings: 1) Cecal polyp- biopsied, around appendicile orifice 2) Transverse colon polyp- biopsied and inked 3) Sigmoid colon polyp 4) Sigmoid colon diverticulosis 5) rectal hyperplastic polyps Pre Op Diagnosis: History of colon polyps Post-Op Diagnosis: Cecal polyp, Transverse colon polyp, Sigmoid colon polyp, Sigmoid colon diverticulosis, rectal hyperplastic polyps [place] [facility] [place] Surgeon: Margret Lopez Condition: Good Free Text/Narrative:: Intake & Output 08/15/21 08/16/21 08/16/21 22:59 06:59 14:59 Intake Total 800 Balance 800
--- NOTE | 2021-08-16 14:13 | OR ---
SURGEON: MARGRET LOPEZ MD DATE OF PROCEDURE: 08/16/2021 PREOPERATIVE DIAGNOSIS: History of colon polyps. POSTOPERATIVE DIAGNOSES: 1. Cecal polyp. 2. Transverse colon polyp. 3. Sigmoid colon polyp. 4. Hyperplastic colon polyps of the rectum. 5. Sigmoid colon diverticulosis. PROCEDURE PERFORMED: Diagnostic colonoscopy with polypectomy and biopsy. PRIMARY SURGEON: Margret Lopez MD ANESTHESIA: General mask. INSTRUMENT USED: Olympus colonoscope. EXTENT OF EXAM: To the cecum. PREPARATION: Good. LIMITATIONS: None. INDICATIONS FOR EXAMINATION: The patient is a 81-year-old male who 3 years ago was found to have large polyps within the colon. He had these resected by a colorectal surgeon. He is back for a 3-year followup colonoscopy. I explained the procedure, expected perioperative course, and the risks. He verbalized understanding and wishes to proceed. PROCEDURE IN DETAIL: The patient was brought to the endoscopy suite and placed in the left lateral decubitus position. A time-out was completed verifying the patient's name, age, date of , allergies, and procedure to be performed. Anesthesia was induced, and continuous oxygen was provided via nasal cannula throughout the procedure. After adequate sedation was achieved, a digital rectal exam was performed. This exam was within normal limits. A well-lubricated colonoscope was inserted into the rectum and advanced under direct visualization to the level of the cecum. The cecum was identified by both visual and anatomic landmarks. A photograph was taken of the cecal cap as well as with the scope retroflexed within the cecum. The scope was then fully withdrawn while examining the color, texture, anatomy, and integrity of the mucosa from the cecum to the anal canal. Around the appendiceal orifice, the patient was noted to have some irregular-appearing tissue. This appeared like it may be a sessile polyp. Given that the margins were irregular and the patient has had a previous polyp in this area, biopsies were taken and multiple photographs taken as well. These biopsies were sent to Pathology labeled as cecal biopsy. At 70 cm in the proximal transverse colon, the patient was noted to have a sessile polyp along the edge of a colonic fold. Biopsies of this were taken. It was too large for me to remove today. The area was inked for identification in the future and photographs taken. The scope was brought into the sigmoid colon. He was noted to have diverticulosis. At 40 cm, the patient had a sessile polyp, which was removed using a hot snare. This was sent to Pathology labeled as a sigmoid colon polyp. In the rectum, the patient was noted to have multiple hyperplastic polyps and a photograph of this was taken. The scope was then retroflexed within the rectum to allow visualization of the anal canal opening. This appeared normal, and a photograph was taken. The scope was straightened out and fully withdrawn. The cecum to anus time was 34 minutes. The patient tolerated the procedure well, was transferred to the PACU in stable condition. ENDOSCOPIC DIAGNOSES: 1. Cecal polyp. 2. Transverse colon polyp. 3. Sigmoid colon polyp. 4. Hyperplastic colon polyps of the rectum. 5. Sigmoid colon diverticulosis. RECOMMENDATIONS: Follow up in clinic in 2 weeks to discuss pathology results and next steps in treatment. WILNER CAZARES /[id number]
== END 2021-08-16 11:27 | disposition home or self-care (01) ==
LOC: MW.SDS 07:59
PROVIDERS: ATTEND Surgery
DX: D12.0 Benign neoplasm of cecum (principal); D12.3 Benign neoplasm of transverse colon; D12.5 Benign neoplasm of sigmoid colon; K57.30 Diverticulosis of large intestine without perforation or abscess without bleeding; N40.0 Benign prostatic hyperplasia without lower urinary tract symptoms; N52.9 Male erectile dysfunction, unspecified; E78.00 Pure hypercholesterolemia, unspecified; E03.9 Hypothyroidism, unspecified; Z79.899 Other long term (current) drug therapy; Z90.49 Acquired absence of other specified parts of digestive tract; Z87.891 Personal history of nicotine dependence
CPT/HCPCS: 45380; 45385; J2704; J3010; J7120; 00811; 88305; 99100